=== PATIENT | female | born 1965 | race Caucasian/White ===

== ENCOUNTER 2017-12-06 21:25 | Emergency (ER) | payer MEDICAID ==
[~2017-12-06] VITALS: Ht 160 cm; Wt 70.8 kg
[2017-12-06] MEDS ORDERED: SYNTHROID100 MCG ORAL (21:43)
[2017-12-06 21:47] VITALS: BP 110/73
[2017-12-06] MEDS ORDERED: IBUPROFEN600 MG ORAL (21:59)
[2017-12-06] MEDS ORDERED: AUGMENTIN 875-1 EAC1 ORAL (21:59)
--- NOTE | 2017-12-06 21:59 | Emergency Room Report ---
History of Present Illness General Chief Complaint: Animal Bite Source: Patient Present Illness HPI This is a 52-year-old female who is right-hand dominant. She presents with chief complaint of a dog bite to the right hand. Onset was about 3 hours ago. She has been was walking and [place] with another person and was walking her dog. The dog bit her. It's a family pet. No other injury. Pain is mild. No drainage. Allergies: Coded Allergies: No Known Allergies (Unverified , 12/06/17) Patient History Past Medical History: see triage record, old chart reviewed Past Surgical History: other Pertinent Family History: none Social History: Denies: smoking Now: No Immunizations: other Reviewed Nursing Documentation: PMH: Agreed; PSxH: Agreed Review of Systems Eye: Denies: eye pain, blurred vision ENT: Denies: ear pain, nose congestion, throat swelling Respiratory: Denies: cough, shortness of breath Cardiovascular: Denies: chest pain, palpitations Gastrointestinal: Denies: abdominal pain, diarrhea, nausea, vomiting Musculoskeletal: Reports: muscle pain; Denies: back pain, joint pain Skin: Denies: rash Neurological: Denies: headache, numbness Endocrine: Denies: increased thirst, increased urine Hematologic/Lymphatic: Denies: easy bruising All Other Systems: negative except mentioned in HPI Physical Exam Vital Signs Date Time Temp Pulse Resp B/P (MAP) Pulse Ox O2 Delivery O2 Flow Rate FiO2 12/06/17 21:39 98.1 79 16 110/73 97 Room Air 98.1 vitals normal Sp02 EP Interpretation: reviewed, normal General Appearance: well appearing, no apparent distress, alert Head: normocephalic, atraumatic Eyes: bilateral eye PERRL, bilateral eye EOMI ENT: hearing grossly normal, normal pharynx Neck: full range of motion, supple, no meningismus Respiratory: chest non-tender, lungs clear, normal breath sounds Cardiovascular #1: regular rate, rhythm, no murmur Gastrointestinal: normal bowel sounds, non tender, no mass, no organomegaly, no bruit, non-distended Musculoskeletal: back normal, gait/station normal, normal range of motion, other - Right hand: There are multiple small puncture nomi to the dorsum of the hand with surrounding ecchymosis. No deep laceration. No drainage. Psychiatric: mood/affect normal Skin: warm/dry Medical Decision Making Diagnostic Impression: Primary Impression: Dog bite of right hand Qualified Codes: S61.451A - Open bite of right hand, initial encounter; W54.0XXA - Bitten by dog, initial encounter ER Course Patient presents with dog bite to the right hand. Increased risk for infection. Nothing to be sutured. Unlikely to have rabies since is a family pet and her has the phone number of the other person. Discharge home with antibiotics. Tetanus updated. Last Vital Signs Date Time Temp Pulse Resp B/P (MAP) Pulse Ox O2 Delivery O2 Flow Rate FiO2 12/06/17 21:47 98.1 89 16 110/73 97 Room Air 98.1 Status: improved Disposition: HOME, SELF-CARE Condition: Stable Scripts Ibuprofen* (MOTRIN*) 600 Mg Tablet 600 MG ORAL THREE TIMES A DAY, #30 TAB 0 Refills Prov: KRISTEN BURR M.D. 12/06/17 Amoxicillin/Potassium Clav 875-125* (AUGMENTIN 875-125 TABLET*) 1 Each Tablet 1 TAB ORAL TWICE A DAY, #14 TAB Prov: KRISTEN BURR M.D. 12/06/17 Patient Instructions: Animal Bite Additional Instructions: Keep wound clean. Follow-up with your doctor in 7 days. Return if symptom worsen. KRISTEN BURR M.D. Dec 06, 2017 21:59
[2017-12-06] MEDS ORDERED: Bacitracin Oint UD TOPIC ONE (22:00)
[2017-12-06] MEDS ORDERED: Tetanus/Diptheria/Pertussis Vaccine 0.5ml Syr IM ONE (22:00)
[2017-12-06 22:20] VITALS: BP 110/73
== END 2017-12-06 22:20 | disposition home or self-care (01) ==
LOC: EMR 21:55
DX: S61.451A Open bite of right hand, initial encounter (principal); W54.0XXA Bitten by dog, initial encounter; Z20.3 Contact with and (suspected) exposure to rabies; Z23 Encounter for immunization
CPT/HCPCS: 90471; 90715; 99284